=== PATIENT | female | born 1985 | race Caucasian/White ===

== ENCOUNTER 2016-10-18 23:20 | Emergency (ER) | payer BC | END 2016-10-19 00:10 | disposition home or self-care (01) | LOC: D.ER 23:20 | DX: K64.9 Unspecified hemorrhoids (principal) ==

== ENCOUNTER 2016-10-19 23:55 | Emergency (ER) | payer BC | END 2016-10-20 00:30 | disposition home or self-care (01) | LOC: D.ER 23:55 | DX: K64.4 Residual hemorrhoidal skin tags (principal) ==